=== PATIENT | female | born 1960 | race African-American/Black ===

== ENCOUNTER 2022-09-22 01:40 | Emergency (ER) | payer MEDICAID ==
[~2022-09-22] VITALS: Ht 165.1 cm; Wt 66.0 kg
[2022-09-22] MEDS ORDERED: MAGNESIUM/ALUMINUM HYDROXIDE/SIMETHICONE 30ML UDC PO STA (03:50)
[2022-09-22] MEDS ORDERED: VISCOUS LIDOCAINE 2% 15 ML UDC PO STA (03:50)
[2022-09-22] MEDS ORDERED: VISCOUS LIDOCAINE 2% 15 ML UDC PO SCH (08:15)
[2022-09-22] MEDS ORDERED: MAGNESIUM/ALUMINUM HYDROXIDE/SIMETHICONE 30ML UDC PO SCH (08:15)
[2022-09-22 11:08] VITALS: BP 124/71
== END 2022-09-22 11:08 | disposition home or self-care (01) ==
LOC: ER 01:40
DX: R10.13 Epigastric pain (principal); M79.605 Pain in left leg; M79.604 Pain in right leg; Z86.39 Personal history of other endocrine, nutritional and metabolic disease
CPT/HCPCS: 93005; 99283

== ENCOUNTER 2023-11-17 14:28 | Emergency (ER) | payer MEDICAID ==
[~2023-11-17] VITALS: Ht 160 cm; Wt 60.0 kg
[~2023-11-17 14:28] MED LIST: TOPUD PO
[2023-11-17 14:33] VITALS: BP 132/76; PULSE 89; RESP 18; TEMP 98.9; O2SAT 98
[2023-11-17] MEDS ORDERED: IBUP-2029 MT (14:41)
[2023-11-17] MEDS ORDERED: IBUPROFEN 600MG TABLET PO ONE (14:45)
== END 2023-11-17 15:21 | disposition home or self-care (01) ==
LOC: ER 14:59
DX: M79.604 Pain in right leg (principal); Z86.39 Personal history of other endocrine, nutritional and metabolic disease
CPT/HCPCS: 99283; Z7610

== ENCOUNTER 2023-11-17 17:42 | Emergency (ER) | payer MEDICAID ==
[~2023-11-17] VITALS: Ht 167.6 cm; Wt 65.0 kg
[~2023-11-17 17:42] MED LIST changes: +IBUP-2029 MT
[2023-11-17 17:58] VITALS: BP 102/54; PULSE 83; RESP 20; O2SAT 97
[2023-11-17] MEDS ORDERED: ACETAMINOPHEN 325MG TABLET PO ONE (18:15)
[2023-11-17 18:51] VITALS: TEMP 98.1
== END 2023-11-17 20:10 | disposition home or self-care (01) ==
LOC: ER 17:42
DX: M25.571 Pain in right ankle and joints of right foot (principal); G89.29 Other chronic pain; E05.90 Thyrotoxicosis, unspecified without thyrotoxic crisis or storm; Z90.710 Acquired absence of both cervix and uterus; Z98.890 Other specified postprocedural states
CPT/HCPCS: 99281

== ENCOUNTER 2023-11-27 00:58 | Emergency (ER) | payer MEDICAID ==
[~2023-11-27] VITALS: Ht 165.1 cm; Wt 71.0 kg
[2023-11-27 01:08] VITALS: BP 130/80; PULSE 96; RESP 18; TEMP 98.3; O2SAT 98
[2023-11-27 04:39] LABS: BASOPHILS % 0.9 % (0.0-2.0); DIFFERENTIAL COMMENT 0; EOSINOPHILS % 5.5 % (0.0-5.0); HEMATOCRIT. 39.7 % (36.0-48.0); HEMOGLOBIN. 12.6 g/dL (12.0-16.0); LYMPHOCYTES % 28.4 % (20.0-50.0); MEAN CORPUSCULAR HEMOGLOBIN 24.6 pg (28.0-32.0); MEAN CORPUSCULAR HGB CONC 31.8 g/dL (31.0-37.0); MEAN CORPUSCULAR VOLUME 77.5 fL (81.0-99.0); MEAN PLATELET VOLUME 7.9 fl (7.4-10.4); MONOCYTES % 9.9 % (2.0-8.0); NEUTROPHILS % 55.3 % (40.0-76.0); PLATELET 300 x1000/uL (130-400); RED BLOOD CELL COUNT 5.12 mill/uL (4.2-5.4); RED CELL DISTRIBUTION WIDTH 14.8 % (11.6-14.6); WHITE BLOOD COUNT 7.6 x1000/uL (4.5-11.0)
[2023-11-27 04:54] LABS: AMMONIA < 10 uMol/L (<32)
[2023-11-27 04:55] LABS: ACETAMINOPHEN < 2 ug/mL (10-30); ALANINE AMINOTRANSFERASE 18 IU/L (10-49); ALBUMIN 4.2 g/dL (3.2-4.8); ASPARTATE AMINOTRANSFERASE 23 IU/L (<34); BILIRUBIN TOTAL 0.4 mg/dL (0.1-1.0); CARBON DIOXIDE 23 mEq/L (21-32); CHLORIDE 107 mEq/L (98-107); CREATININE 0.6 mg/dL (0.6-1.0); GLUCOSE 105 mg/dL (70-105); POTASSIUM 3.6 mEq/L (3.5-5.1); PROTEIN TOTAL 7.2 g/dL (6.0-8.3); SODIUM 138 mEq/L (136-145); UREA NITROGEN BLOOD 28 mg/dL (9-23)
[2023-11-27 05:29] LABS: ETHANOL BLOOD < 10 mg/dL (<10)
== END 2023-11-27 10:16 | disposition home or self-care (01) ==
LOC: ER 00:58
DX: R44.3 Hallucinations, unspecified (principal); Z00.00 Encounter for general adult medical examination without abnormal findings; Z86.39 Personal history of other endocrine, nutritional and metabolic disease; Z98.890 Other specified postprocedural states
CPT/HCPCS: 36415; 80053; 80307; 80320; 80329; 82140; 85025; 99283; G0480

== ENCOUNTER 2024-01-03 18:52 | Emergency (ER) | payer MEDICAID ==
[~2024-01-03] VITALS: Ht 160 cm; Wt 70.0 kg
[2024-01-03 18:55] VITALS: BP 130/70; PULSE 90; RESP 16; TEMP 98.4; O2SAT 98
[2024-01-03] MEDS ORDERED: CEFTRIAXONE SODIUM 500MG VIAL IM ONE (19:45)
[2024-01-03] MEDS ORDERED: AZITHROMYCIN 500 MG TABLET PO ONE (19:45)
== END 2024-01-04 07:55 | disposition home or self-care (01) ==
LOC: ER 19:02
DX: R10.9 Unspecified abdominal pain (principal); E03.9 Hypothyroidism, unspecified
CPT/HCPCS: 99283

== ENCOUNTER 2024-01-26 18:14 | Emergency (ER) | payer MEDICAID ==
[~2024-01-26] VITALS: Ht 157.5 cm; Wt 59.0 kg
[2024-01-26 18:24] VITALS: BP 140/88; PULSE 80; RESP 16; TEMP 98.7; O2SAT 96
== END 2024-01-26 19:00 | disposition left against medical advice (07) ==
LOC: ER 18:14
DX: R10.9 Unspecified abdominal pain (principal); Z53.21 Procedure and treatment not carried out due to patient leaving prior to being seen by health care provider

== ENCOUNTER 2024-03-11 23:47 | Emergency (ER) | payer MEDICAID ==
[~2024-03-11] VITALS: Ht 154.9 cm; Wt 64.0 kg
[2024-03-11 23:51] VITALS: BP 140/90; PULSE 90; RESP 16; TEMP 98.6; O2SAT 98
[2024-03-12] MEDS ORDERED: SODIUM CHLORIDE 0.9% 1,000 ML IV ONE
[2024-03-12] MEDS ORDERED: ONDANSETRON HCL 4MG/2ML INJ IV ONE
[2024-03-12] MEDS ORDERED: KETOROLAC 15MG/ML VIAL IV ONE
== END 2024-03-12 02:37 | disposition left against medical advice (07) ==
LOC: ER 23:47
DX: R10.30 Lower abdominal pain, unspecified (principal); Z59.00 Homelessness unspecified; Z00.00 Encounter for general adult medical examination without abnormal findings; Z86.39 Personal history of other endocrine, nutritional and metabolic disease
CPT/HCPCS: 99283; J7030

== ENCOUNTER 2024-03-12 04:34 | Emergency (ER) | payer MEDICAID ==
[~2024-03-12] VITALS: Ht 162.6 cm; Wt 64.0 kg
[2024-03-12 04:46] VITALS: PULSE 100
[2024-03-12 04:50] VITALS: BP 149/77; RESP 16; TEMP 98.7; O2SAT 100
== END 2024-03-12 06:00 | disposition left against medical advice (07) ==
LOC: ER 04:34
DX: R05.9 Cough, unspecified (principal); Z53.21 Procedure and treatment not carried out due to patient leaving prior to being seen by health care provider

== ENCOUNTER 2024-04-20 23:42 | Emergency (ER) | payer MEDICAID ==
[~2024-04-20] VITALS: Ht 165.1 cm; Wt 65.0 kg
[2024-04-20 23:47] VITALS: BP 134/80; PULSE 89; RESP 16; TEMP 98.5; O2SAT 99
[2024-04-21] MEDS ORDERED: ONDANSETRON HCL 4MG/2ML INJ IV ONE
[2024-04-21] MEDS ORDERED: MORPHINE SULFATE 2 MG/ML CPJ (NOT FOR IM USE) IV ONE
[2024-04-21] MEDS ORDERED: SODIUM CHLORIDE 0.9% 1,000 ML IV ONE
== END 2024-04-21 03:16 | disposition left against medical advice (07) ==
LOC: ER 23:42
DX: R10.84 Generalized abdominal pain (principal); E03.9 Hypothyroidism, unspecified
CPT/HCPCS: 99283; J7030

== ENCOUNTER 2024-04-21 03:42 | Emergency (ER) | payer MEDICAID ==
[~2024-04-21] VITALS: Ht 162.6 cm; Wt 70.0 kg
[2024-04-21 03:45] VITALS: BP 125/64; PULSE 86; RESP 16; TEMP 98.1; O2SAT 96
== END 2024-04-21 05:27 | disposition home or self-care (01) ==
LOC: ER 03:45
DX: R10.84 Generalized abdominal pain (principal); R11.2 Nausea with vomiting, unspecified; E03.9 Hypothyroidism, unspecified
CPT/HCPCS: 99283